=== PATIENT | female | born 1995 | race Caucasian/White ===

== ENCOUNTER 2021-08-25 10:02 | Day surgery (SDC) | payer MEDICAID ==
[~2021-08-25] VITALS: Ht 162.6 cm; Wt 96.0 kg
[2021-08-25] MEDS ORDERED: PREN-183 PO (10:28)
[2021-08-25 11:27] LABS: BASOPHILS % 0.5 % (0.0-2.0); HEMATOCRIT. 38.4 % (36.0-48.0); HEMOGLOBIN. 13.3 g/dL (12.0-16.0); LYMPHOCYTES % 8.7 % (20.0-50.0); MEAN CORPUSCULAR HEMOGLOBIN 31.8 pg (28.0-32.0); MEAN CORPUSCULAR VOLUME 91.6 fL (81.0-99.0); MEAN PLATELET VOLUME 7.7 fl (7.4-10.4); MONOCYTES % 3.1 % (2.0-8.0); NEUTROPHILS % 85.7 % (40.0-76.0); PLATELET 244 x1000/uL (130-400); RED BLOOD CELL COUNT 4.19 mill/uL (4.2-5.4); RED CELL DISTRIBUTION WIDTH 12.2 % (11.6-14.6)
[2021-08-25 11:32] LABS: CHLORIDE 105 mEq/L (98-107)
[2021-08-25 11:34] LABS: CLARITY URINE TURBID (CLEAR); COLOR URINE BLOODY (YELLOW); KETONES URINE 1+ (NEGATIVE); LEUKOCYTE ESTERASE URINE NEGATIVE (NEGATIVE); NITRITE URINE NEGATIVE (NEGATIVE); OCCULT BLOOD URINE 3+ (NEGATIVE); PROTEIN URINE 3+ (NEGATIVE); SPECIFIC GRAVITY URINE 1.025 (1.005-1.030); UROBILINOGEN URINE 0.2 E.U./dL (0.2-1.0)
[2021-08-25 11:42] LABS: B-HCG QUANTITATIVE 396 mIU/mL (<3)
[2021-08-25] MEDS ORDERED: ACETAMINOPHEN 325MG TABLET PO ONE (12:00)
[2021-08-25] MEDS ORDERED: DEXT 5%/LR + PITOCIN 20UNITS/L 1,000 ML IV ONE (12:15)
[2021-08-25] MEDS ORDERED: SODIUM CHLORIDE 0.9% 1,000 ML IV ONE (12:45)
[2021-08-25 13:00] VITALS: BP 121/72
[2021-08-25] MEDS ORDERED: KETOROLAC 30MG/ML VIAL ONE (13:51)
[2021-08-25] MEDS ORDERED: FENTANYL CITRATE/PF 50MCG/ML 2ML VIAL ONE (13:51)
[2021-08-25] MEDS ORDERED: MIDAZOLAM HCL 2 MG/2 ML VIAL ONE (13:52)
[2021-08-25] MEDS ORDERED: METOCLOPRAMIDE HCL 10MG/2ML VIAL ONE (13:52)
[2021-08-25] MEDS ORDERED: DEXAMETHASONE 4MG/ML 1ML VIAL ONE (13:52)
[2021-08-25] MEDS ORDERED: PROPOFOL 200MG/20ML VIAL IV ONE (13:52)
[2021-08-25] MEDS ORDERED: ONDANSETRON HCL 4MG/2ML INJ ONE (13:52)
[2021-08-25] MEDS ORDERED: OXYTOCIN 10 UNITS/ML 1ML ONE (14:27)
[2021-08-25] MEDS ORDERED: HYDROMORPHONE HCL/PF 2MG/ML CPJ IV PRN (14:45)
[2021-08-25] MEDS ORDERED: SODIUM CHLORIDE 0.9% 1,000 ML IV SCH (14:45)
[2021-08-25] MEDS ORDERED: ONDANSETRON HCL 4MG/2ML INJ IV PRN (14:45)
[2021-08-25] MEDS ORDERED: MEPERIDINE HCL/PF 25MG/ML CPJ IV PRN (14:45)
[2021-08-25] MEDS ORDERED: ACETAMINOPHEN 325MG TABLET PO PRN (15:45)
== END 2021-08-25 17:00 | disposition home or self-care (01) ==
LOC: ER 10:02 → UNDOADMIN 12:12 → ORIP 12:12 → EDBEDREQ 13:16 → OR 14:30 → CANBEDREQ 18:32
PROVIDERS: ATTEND Obstetrics & Gynecology
DX: O03.4 Incomplete spontaneous abortion without complication (principal); E66.9 Obesity, unspecified; Z3A.14 14 weeks gestation of pregnancy; Z79.899 Other long term (current) drug therapy; Z72.89 Other problems related to lifestyle; Z98.890 Other specified postprocedural states; Z20.822 Contact with and (suspected) exposure to COVID-19
CPT/HCPCS: 36415; 59812; 76856; 80053; 81003; 84702; 85025; 86850; 86900; 86901; 87426; 88305; 99285; J1100; J1885; J2250; J2405; J2590; J2704; J2765; J3010; J7030

== ENCOUNTER 2025-01-08 14:48 | Emergency (ER) | payer MEDICAID ==
[~2025-01-08] VITALS: Ht 167.6 cm; Wt 73.0 kg
[~2025-01-08 14:48] MED LIST: PREN-183 PO
[2025-01-08 15:06] VITALS: O2SAT 98
[2025-01-08 15:07] VITALS: BP 128/65; PULSE 66; RESP 20; TEMP 36.6; O2SAT 99
[2025-01-08] MEDS: SODIUM CHLORIDE 0.9% 1,000 ML IV ONE (16:02)
[2025-01-08] MEDS: ACETAMINOPHEN 1000MG/100ML 100 ML IV ONE (16:09)
[2025-01-08 16:17] LABS: BASOPHILS % 0.5 % (0.0-2.0); EOSINOPHILS % 0.7 % (0.0-5.0); HEMATOCRIT. 38.6 % (36.0-48.0); HEMOGLOBIN. 12.7 g/dL (12.0-16.0); LYMPHOCYTES % 32.5 % (20.0-50.0); MEAN CORPUSCULAR HEMOGLOBIN 31.9 pg (28.0-32.0); MEAN CORPUSCULAR HGB CONC 32.8 g/dL (31.0-37.0); MEAN CORPUSCULAR VOLUME 97.2 fL (81.0-99.0); MEAN PLATELET VOLUME 7.9 fl (7.4-10.4); MONOCYTES % 7.6 % (2.0-8.0); NEUTROPHILS % 58.7 % (40.0-76.0); PLATELET 338 x1000/uL (130-400); RED BLOOD CELL COUNT 3.97 mill/uL (4.2-5.4); RED CELL DISTRIBUTION WIDTH 12.4 % (11.6-14.6); WHITE BLOOD COUNT 5.1 x1000/uL (4.5-11.0)
[2025-01-08 16:21] LABS: CHLORIDE 105 mEq/L (98-107); POTASSIUM 4.3 mEq/L (3.5-5.1); SODIUM 139 mEq/L (136-145)
[2025-01-08 16:22] LABS: CALCIUM 8.7 mg/dL (8.7-10.4); CARBON DIOXIDE 25 mEq/L (21-32)
[2025-01-08 16:27] LABS: CREATININE 0.7 mg/dL (0.6-1.0); GLUCOSE 86 mg/dL (70-105); UREA NITROGEN BLOOD 9 mg/dL (9-23)
[2025-01-08 16:29] LABS: B-HCG QUANTITATIVE 4 mIU/mL (<3)
[2025-01-08 16:30] LABS: ALANINE AMINOTRANSFERASE 14 IU/L (10-49); ALBUMIN 4.1 g/dL (3.2-4.8); ASPARTATE AMINOTRANSFERASE 21 IU/L (<34); BILIRUBIN TOTAL 0.4 mg/dL (0.1-1.0); PROTEIN TOTAL 7.1 g/dL (6.0-8.3)
[2025-01-08 16:33] LABS: BILIRUBIN DIRECT < 0.1 mg/dL (<=3.0)
[2025-01-08 16:34] LABS: CLARITY URINE CLEAR (CLEAR); COLOR URINE YELLOW (YELLOW); GLUCOSE URINE NEGATIVE (NEGATIVE); KETONES URINE NEGATIVE (NEGATIVE); LEUKOCYTE ESTERASE URINE 3+ (NEGATIVE); NITRITE URINE NEGATIVE (NEGATIVE); OCCULT BLOOD URINE 1+ (NEGATIVE); PH URINE 6.5 (4.5-8.0); PROTEIN URINE NEGATIVE (NEGATIVE); SPECIFIC GRAVITY URINE 1.002 (1.005-1.030); UROBILINOGEN URINE 0.2 E.U./dL (0.2-1.0)
[2025-01-08 16:34] LABS: HCG SCREEN NEGATIVE
[2025-01-08 16:38] LABS: BACTERIA URINE NONE SEEN; RBC URINE 0-2 /hpf (0-2); SQUAMOUS EPITHELIAL CELL URINE RARE /lpf (RARE/1+)
[2025-01-08] MEDS: IOHEXOL-300 100 ML BOTTLE ONE (17:42)
[2025-01-08] MEDS ORDERED: AMOX1TAB16 MT (17:55)
[2025-01-08] MEDS ORDERED: IOHEXOL-300 100 ML BOTTLE ONE (23:34)
== END 2025-01-08 18:36 | disposition home or self-care (01) ==
LOC: ER 14:48
DX: R10.30 Lower abdominal pain, unspecified (principal); I10 Essential (primary) hypertension; Z98.890 Other specified postprocedural states; Z79.899 Other long term (current) drug therapy
CPT/HCPCS: 99285; 74177; 96365; 96366; 80076; 80048; 81003; 81025; 84703; 84702; 83690; 85025; 36415; Q9967; J7030; J0131